=== PATIENT | male | born 1975 | race Caucasian/White ===

== ENCOUNTER 2020-09-16 15:41 | Emergency (ER) | payer OTHER ==
[~2020-09-16] VITALS: Ht 167.6 cm; Wt 88.5 kg
--- NOTE | 2020-09-17 11:25 | EKG ---
[facility] [address] [place], [place] [address] elevation, probably due to early repolarization Borderline ECG No previous ECGs available Confirmed by SANDI NELSON DO ([id number]) on 09/17/2020 11:25:33 AM Electronically Signed By: SANDI NELSON DO 09/17/20 1125 PATIENT NAME: JASEN CORNELIUSRHEA Electrocardiogram DATE OF : 77 PHYSICIAN: SANDI NELSON DO REPORT #: [id number] REPORT IS CONFIDENTIAL AND NOT TO BE RELEASED WITHOUT AUTHORIZATION
[2020-09-17] MEDS ORDERED: MECLIZINE HCL25 MG PO (23:02)
[2020-09-17] MEDS ORDERED: ZOFRAN4 MG PO (23:03)
[2020-09-17] MEDS ORDERED: LISINOPRIL20 MG PO (23:03)
== END 2020-09-16 19:02 | disposition home or self-care (01) ==
LOC: ED 15:41
DX: H83.09 Labyrinthitis, unspecified ear (principal); R03.0 Elevated blood-pressure reading, without diagnosis of hypertension
CPT/HCPCS: 70450; 80053; 83735; 84484; 85025; 93005; 93010; 96374; 99284-25; J2405

== ENCOUNTER 2020-09-17 22:50 | Emergency (ER) | payer OTHER ==
[~2020-09-17] VITALS: Ht 167.6 cm; Wt 86.2 kg
--- OUTSIDE RECORDS SUMMARY | 2020-09-17 22:56 | XMS ---
PreManage Notification: RHEA JORGE Security Certified Personal Chef Events No recent Security Events currently on file CRITERIA MET - [facility] - 2 Visits in 30 Days CARE PROVIDERS There are no care providers on record at this time. Robin has no Care Guidelines for this patient. Renny VISIT COUNT (12 MO.) 2 [facility]. TOTAL 2 NOTE: Visits indicate total known visits. ED/C VISIT TRACKING (12 MO.) 09/17/2020 22:50 [facility] [place] TYPE: Emergency COMPLAINT: - DIZZINESS 09/16/2020 15:42 [facility] [place] TYPE: Emergency COMPLAINT: - N/V INPATIENT VISIT TRACKING (12 MO.) No inpatient visits to display in this time frame [email or web address]
[2020-09-17] MEDS ORDERED: MECLIZINE HCL25 MG PO (23:02)
[2020-09-17] MEDS ORDERED: LISINOPRIL20 MG PO (23:03)
[2020-09-17] MEDS ORDERED: ZOFRAN4 MG PO (23:03)
== END 2020-09-17 23:28 | disposition home or self-care (01) ==
LOC: ED 22:50
DX: R42 Dizziness and giddiness (principal); I10 Essential (primary) hypertension; Z87.891 Personal history of nicotine dependence; Z79.899 Other long term (current) drug therapy
CPT/HCPCS: 99284